=== PATIENT | female | born 1950 | race Caucasian/White ===

== ENCOUNTER 2019-10-25 13:10 | Emergency (ER) | payer OTHER ==
[2019-10-25] MEDS ORDERED: IBUPROFEN 600 MG TABLET (FP) PO ONE (13:14)
[2019-10-25 13:17] VITALS: BP 151/81; PULSE 65; TEMP 97.6; BMI 22.6
[2019-10-25] MEDS ORDERED: IBUPROFEN 400 MG TABLET (FP) PO ONE (13:26)
--- NOTE | 2019-10-25 13:58 | PDOC ---
History of Present Illness - General Chief Complaint: Injury Stated Complaint: FALL Time Seen by Provider: 10/25/19 13:13 History Source: Patient Exam Limitations: No Limitations - History of Present Illness Initial Comments: 69 year old female with no significant PMH presented to ED for fall occurring just [employer]. Pt reported she was sitting on the front porch, stood up from her c hair, got her right leg caught, and fell forward onto her right side. Pt denied LOC, vomiting, head injury, chest pain, shortness of breath, numbness, weakness, tingling, abdominal pain, back pain. Pt complained of right wrist pain/swelling, left forearm abrasion, right lower leg laceration. ROS General: denied fever, chills, generalized weakness. HEENT: denied sore throat, rhinorrhea, ear pain. Cardiovascular: denied chest pain, palpitations, syncope, diaphoresis. Respiratory: denied shortness of breath, cough, sputum production, hemoptysis. Gastrointestinal: denied abdominal pain, nausea, vomiting, diarrhea, constipation, blood in stool. Genitourinary: denied dysuria, increased urinary frequency, hematuria, urinary incontinence, flank pain. Back: denied back pain. Musculoskeletal: admitted to right wrist pain, right lower leg pain, left arm abrasion. Neurological: denied headache, dizziness, numbness, tingling, weakness. Integumentary: admitted to laceration, abrasion. Hematologic/Lymphatic: denied bruising or bleeding. PE Constitutional: Well-nourished, Well-developed, appearing stated age. Airway: intact Breathing: bilateral breath sounds Circulation: 2+ carotid pulse B/L HEENT: head is normocephalic, atraumatic. No facial bones tenderness to palpation. No woods sign. No raccoon eyes. EOMI. PERRLA. Neck: supple. Full ROM. no midline c-spine tenderness to palpation. No step offs. Cardiovascular: regular heart rhythm. no murmurs. no pericardial friction rub. Chest wall: No tenderness to palpation of anterior chest wall. No deformity to anterior chest wall. Respiratory: clear to auscultation bilaterally. no crackles, rhonchi or wheezing. no stridor. Gastrointestinal: soft, nontender. normal bowel sounds. no rebound, guarding, masses. No ecchymoses. Back: no midline T-spine or L-spine tenderness to palpation. No step offs. Pelvis: lower extremities equal in length without external rotation. No hip tenderness to palpation. Extremities: peripheral pulses intact. no lower extremity edema. Right lower le cm simple clean laceration to the right lower leg, no active bleeding, no contamination. Left forearm: 6 cm linear abrasion, no laceration, no surrounding erythema, no drainage. Right wrist: swelling and tenderness over the distal ulna, swelling to distal radius, closed. limited ROM wrist 2/2 pain. Fingers neurovascularly intact. no snuff box tenderness. Neurological: CN 2-12 grossly intact. moves all four extremities. Psych: awake, alert, oriented x3. follows commands. answers questions appropriately. Past History - Medical History Allergies/Adverse Reactions: Allergies Allergy/AdvReac Type Severity Reaction Status Date / Time No Known Allergies Allergy Verified 10/25/19 13:12 Home Medications: Ambulatory Orders NK [No Known Home Medication] 10/25/19 Statin 5 mg PO DAILY 10/25/19 COPD: No Hypercholesterolemia: Yes - Psycho-Social/Smoking History Smoking History: Never smoked Have you smoked in the past 12 months: No Information on smoking cessation initiated: No - Substance Abuse Hx (Audit-C & DAST Scrn) How often the patient has a drink containing alcohol: Never Score: In Men: 4 or > Positive; In Women: 3 or > Positive: 0 Screen Result (Pos requires Nsg. Audit-10AR): Negative In the last yr the pt used illegal drug/Rx for NonMed reason: No Score: Yes response is considered Positive: 0 Screen Result (Positive result requires Nsg. DAST-10): Negative *Physical Exam - Vital Signs Last Vital Signs Temp Pulse Resp BP Pulse Ox 97.6 F 65 18 151/81 100 10/25/19 13:10 10/25/19 13:10 10/25/19 13:10 10/25/19 13:10 10/25/19 13:10 Procedures - Laceration/Wound Repair Right Lateral Calf Wound Length: to 2.5 cm Wound Explored: clean, no foreign body present Wound's Depth, Shape: superficial, linear Irrigated w/ Saline: Yes Betadine Prep: No Amount of Anesthetic (ccs): 0 Wound Repaired With: Steri-strips, Dermabond Progress: Wound was closed with steri-strips, approximated well. Then covered with dermabond. Pt educated to take special precautions and observe for dehiscence, for which she should return immediately. Wound then covered with gauze and CANDIE wrap. ED Treatment Course - RADIOLOGY Radiology Studies Ordered: Category Date Time Status FOREARM- RIGHT [RAD] Stat Radiology 10/25/19 13:14 Taken HAND- RIGHT [RAD] Stat Radiology 10/25/19 13:14 Taken - Medications Given in the ED: ED Medications Discontinued Medications Generic Name Dose Route Start Last Admin Trade Name Keo PRN Reason Stop Dose Admin Ibuprofen 400 mg 10/25/19 13:14 10/25/19 13:30 Motrin - PO 10/25/19 13:15 Not Given ONCE ONE Medical Decision Making - Medical Decision Making 69 year old female with above PMH presented to ED for evaluation after a mechanical fall today. Initial Vital Signs Temp Pulse Resp BP Pulse Ox 97.6 F 65 18 151/81 100 10/25/19 13:10 10/25/19 13:10 10/25/19 13:10 10/25/19 13:10 10/25/19 13:10 Afebrile. No tachycardia. No tachypnea. Mild hypertension. No hypoxia on room air. XR right forearm/wrist ordered. Pt declined XR of left extremity or right lower extremity. Pt declined pain medication. Pt reported she would like the wound closed with steri-strips and dermabond over sutures. 10/25/19 14:12 XRs show no acute fractures/dislocations, reported trapezium is missing, pt reported that she has had multiple hand surgeries in the past, and likely this was when that bone could have been removed. Pt reported improvement of pain. Pt encouraged to have sutures instead of steri-strips/dermabond. She reported she would prefer to not have sutures placed. Wound showed close approximation with steri-strips and dermabond, but I would be cautious with movement. I explained the importance of observing for any dehiscence and returning to ED if such occurs. She expressed understanding. She would like to be discharged so that she can return home to take care of her 90 year old mother with dementia. Pt discharged. Discharge - Discharge Information Problems reviewed: Yes Clinical Impression/Diagnosis: Laceration, Fall Condition: Improved Disposition: HOME - Admission No - Follow up/Referral Referrals: Zack Peck MD [Primary Care Provider] - - Patient Discharge Instructions Patient Printed Discharge Instructions: DI for Laceration Repair Steri-Strips, DI for Laceration Repair With Dermabond Additional Instructions: Do not get the lower leg wound wet or apply antibiotic cream - as this will dissolve the glue. Take tylenol over the counter for pain. Take as advised on label. Observe the wound for increasing redness, swelling or drainage - these are signs of infection. The wound was repaired with steri strips and glue at your request - normally I would use suture or stitches. If the wound opens up please return immediately to the ER. Return to the ER for increasing pain, chest pain, shortness o fbreath, vomiting, fever or any other new, worsening or concerning symptoms. Apply bacitracin cream to the other wounds which do not have glue on them. Take a hot bath to relax your muscles. You were seen today by Dr. Wanda Sandoval. Thank you for choosing us for your care. - Post Discharge Activity
--- NOTE | 2019-10-25 14:14 | PDOC ---
Attending Attestation - Resident Resident Name: Wanda Sandoval - ED Attending Attestation I have performed the following: I have examined & evaluated the patient, The case was reviewed & discussed with the resident, I agree w/resident's findings & plan, Exceptions are as noted - HPI HPI: 10/25/19 14:13 69 F with no PMH presents to ED after fall. Pt tripped and fell on her front porch, landing on her outstretched R hand. Denies headstrike/LOC. Now complains of R wrist pain as well as small cut to R leg. - Physicial Exam PE: 10/25/19 14:14 See resident exam - Medical Decision Making 10/25/19 14:14 69 F with R wrist pain and R leg lac. - XRs negative for acute fx - Lac repaired with dermabond Pt is well appearing, with normal vitals. Clinically stable for DC at this time. I discussed the physical exam findings, ancillary test results and final diagnoses with the patient. I answered all of the patient's questions. The patient was satisfied with the care received and felt comfortable with the discharge plan and treatment plan. The patient agrees to follow up with the primary care physician within 24-72 hours. Discharge - Discharge Information Problems reviewed: Yes Clinical Impression/Diagnosis: Laceration, Fall, Wrist pain Condition: Improved Disposition: HOME - Follow up/Referral Referrals: Zack Peck MD [Primary Care Provider] - - Patient Discharge Instructions Patient Printed Discharge Instructions: DI for Laceration Repair Steri-Strips, DI for Laceration Repair With Dermabond Additional Instructions: Do not get the lower leg wound wet or apply antibiotic cream - as this will dissolve the glue. Take tylenol over the counter for pain. Take as advised on label. Observe the wound for increasing redness, swelling or drainage - these are signs of infection. The wound was repaired with steri strips and glue at your request - normally I would use suture or stitches. If the wound opens up please return immediately to the ER. Return to the ER for increasing pain, chest pain, shortness o fbreath, vomiting, fever or any other new, worsening or concerning symptoms. Apply bacitracin cream to the other wounds which do not have glue on them. Take a hot bath to relax your muscles. You were seen today by Dr. Wanda Sandoval. Thank you for choosing us for your care. - Post Discharge Activity
== END 2019-10-25 14:25 | disposition home or self-care (01) ==
LOC: FER 13:10
PROC: 0HQKXZZ Repair Right Lower Leg Skin, External Approach (ICD-10-PCS; principal; 2019-10-25)
DX: S81.811A Laceration without foreign body, right lower leg, initial encounter (principal)
CPT/HCPCS: 73090-TC-RT-FY; 73130-TC-RT-FY; 99284-25